=== PATIENT | male | born 1985 | race Caucasian/White ===

== ENCOUNTER 2017-11-07 06:27 | Emergency (ER) | payer OTHER ==
[2017-11-07 07:08] LABS: Basophils # (Auto) 0.1 K/mm3 (0.0-0.1); Basophils % (Auto) 0.4 % (0.0-1.8); Eosinophils # (Auto) 0.2 K/mm3 (0.0-0.4); Eosinophils % (Auto) 1.6 % (0.0-4.3); Hematocrit 45.2 % (35.5-45.6); Hemoglobin 15.3 gm/dl (11.8-15.2); Lymphocytes % (Auto) 6.8 % (13.4-35.0); Mean Corpuscular HGB Conc 34 % (32-34); Mean Corpuscular Hemoglobin 28 pg (28-32); Mean Corpuscular Volume 83 fl (84-94); Monocytes # (Auto) 1.2 K/mm3 (0.0-0.8); Monocytes % (Auto) 7.8 % (0.0-7.3); Platelet Count 236 K/mm3 (140-440); Red Blood Count 5.45 M/mm3 (3.65-5.03); Red Cell Distribution Width 15.5 % (13.2-15.2)
[2017-11-07 07:29] LABS: Albumin 4.1 g/dL (3.9-5); Calcium 9.5 mg/dL (8.4-10.2)
[2017-11-07] MEDS ORDERED: APRESOLINE IV ONE (08:06)
[2017-11-07] MEDS ORDERED: NACL 0.9% 1000 ML 1,000 ML IV ONE (08:06)
[2017-11-07] MEDS ORDERED: SUBLIMAZE IV ONE (08:06)
[2017-11-07] MEDS ORDERED: ZOFRAN IV ONE (08:08)
[2017-11-07 08:39] LABS: Bilirubin,Urine NEG (Negative); Blood,Urine LG (Negative); Color,Urine Yellow (Yellow); Mucus,Urine FEW /HPF; Protein,Urine <15 mg/dL mg/dL (Negative); Urobilinogen,Urine < 2.0 mg/dL (<2.0)
[2017-11-07 08:41] LABS: RBC,Urine > 182.0 /HPF (0.0-6.0)
--- NOTE | 2017-11-07 08:48 | Cat Scan Report ---
FINAL REPORT EXAM: CT ABDOMEN PELVIS WO CON HISTORY: right flank pain hx kidney stones TECHNIQUE: CT images obtained through the Abdomen and Pelvis without contrast. Transaxial,coronal and sagittal reformats are provided. PRIORS: 03/22/2016 FINDINGS: Imaged intrathoracic contents are unremarkable. The kidneys are markedly enlarged and contain numerous cysts, similar to 2016 examination. [id number] right-sided hydroureteronephrosis is due to a 4 millimeter obstructing stone in the right ureterovesical junction on axial series 2, image 178. Additional nonobstructive 1-2 millimeter stones may be present in both collecting systems. Multiple renal cortical calcifications are present. Numerous hepatic cysts are not significantly changed from prior. The gallbladder, pancreas, spleen and adrenal glands are unremarkable. Hollow enteric organs are normal in course and caliber. No findings of acute appendicitis. No intra-abdominal free air/fluid or lymphadenopathy. Aorta is normal in course and caliber. Superficial soft tissues are unremarkable. No acute or aggressive appearing skeletal findings. IMPRESSION: The the [id number] right-sided hydroureteronephrosis due to a 4 millimeter obstructing stone at the ureterovesical junction. Multicystic kidney disease affecting the liver appears slightly more extensive compared to 03/22/2016.
--- NOTE | 2017-11-07 09:19 | Emergency Department Report ---
HPI - General Chief Complaint: Back Pain/Injury Time Seen by Provider: 11/07/17 08:04 - HPI HPI: The patient is a 31-year-old male who presents for evaluation of right flank pain. The patient has a history of kidney stones. The patient reports right flank pain for the past one day, sharp in quality, moderate in severity, radiating to the right lower abdomen, exacerbated with movement. The patient denies fever, chills, night sweats, chest pain, dyspnea, nausea, vomiting, diarrhea, blood in the stool, dark tarry stool, dysuria, hematuria, genital discharge, inability to pass flatus. ED Past Medical Hx - Past Medical History Previous Medical History?: Yes Hx Kidney Stones: Yes - Surgical History Past Surgical History?: Yes Additional Surgical History: HERNIA REPAIR - Social History Smoking Status: Never Smoker Substance Use Type: None - Medications Home Medications: Home Medications Medication Instructions Recorded Confirmed Last Taken Type Ciprofloxacin HCl [Ciprofloxacin 500 mg PO Q12HR #14 tab 03/22/16 Unknown Rx TAB] HYDROcodone/APAP 5-325 [[place] 1 each PO Q6HR PRN #16 tablet 03/22/16 Unknown Rx 5/325] Tamsulosin [Flomax] 0.4 mg PO QDAY #5 cap 03/22/16 Unknown Rx HYDROcodone/APAP 7.5-325 [[place] 1 each PO Q8HR PRN #20 tablet 11/07/17 Unknown Rx 7.5-325 mg TAB] Ondansetron [Zofran TAB] 4 mg PO Q8HR PRN #20 tablet 11/07/17 Unknown Rx Tamsulosin [Flomax] 0.4 mg PO QDAY #10 cap 11/07/17 Unknown Rx amLODIPine [Norvasc] 5 mg PO DAILY #31 tab 11/07/17 Unknown Rx ED Review of Systems ROS: Stated complaint: KIDNEY PAIN Other details as noted in HPI Constitutional: denies: fever ENT: denies: throat or neck pain Respiratory: denies: cough, shortness of breath Cardiovascular: denies: chest pain Endocrine: denies unexplained weight loss or gain Gastrointestinal: Reports flank and abdominal pain, nausea Genitourinary: denies: dysuria Musculoskeletal: denies: leg swelling Skin: denies: rash Neurological: denies: headache Hematological/Lymphatic: denies: easy bleeding or easy bruising Psych: denies sadness or hopelessness Physical Exam - Physical Exam Vital Signs: Vital Signs 11/07/17 11/07/17 06:45 08:01 Temperature 99.2 F Pulse Rate 109 H Respiratory 20 18 Rate Blood Pressure 163/111 O2 Sat by Pulse 100 Oximetry Physical Exam: General: well-nourished, well-developed, no acute distress Head: Normocephalic, atraumatic Eyes: normal sclera ENT: Mucous membranes are pale and dry Neck: trachea midline, neck supple, No neck stiffness, no cervical adenopathy Respiratory: Breath sounds equal bilaterally, no wheezing, rales, or rhonchi Cardio: S1 and S2 present, no murmurs, rubs, gallops, capillary refill is delayed Abdomen: Normoactive bowel sounds, soft abdomen, right upper quadrant tenderness to palpation present, no rigidity, no guarding or rebound tenderness Chest WALL/Back: No tenderness to palpation of the chest wall, right CVA tenderness with percussion is present, no tenderness with palpation of the flank Musc: No pitting edema Skin: No rash Neuro: no facial drooping, normal speech Psych: Normal affect ED Course Vital Signs 11/07/17 11/07/17 06:45 08:01 Temperature 99.2 F Pulse Rate 109 H Respiratory 20 18 Rate Blood Pressure 163/111 O2 Sat by Pulse 100 Oximetry ED Medical Decision Making - Lab Data Result diagrams: 11/07/17 06:54 11/07/17 06:54 - Medical Decision Making The patient was seen and examined by myself. The patient is placed on a campus monitor and continuous pulse ox. On initial evaluation, the patient was found to be in no distress. Evaluation orders are placed. IV access is established and the patient is given 1 L normal saline fluid bolus and Zofran for nausea, and IV analgesic for pain Lab results exhibited mildly elevated WBC 14 and mildly elevated creatinine of 1.7, likely a patient baseline as the patient's found to have creatinine of 1.5 during ED visit here 2 years ago. Otherwise labs were unremarkable including renal function, LFTs, lipase, and urinalysis. CT scan abdomen and pelvis reveals a 4mm right ureter stone at the UVJ, without severe hydronephrosis. The patient was reevaluated and reported that their symptoms were markedly improved. The patient is stable for discharge with outpatient follow-up. The patient is given follow-up and return instructions. The patient expressed understanding and agreed with the plan. The patient is discharged in stable condition. Critical care attestation.: If time is entered above; I have spent that time in minutes in the direct care of this critically ill patient, excluding procedure time. ED Disposition Clinical Impression: Ureterolithiasis, Acute right flank pain, Acute abdominal pain in right upper quadrant, Dehydration, mild, Hypertensive urgency Disposition: TO HOME OR SELFCARE Is pt being admited?: No Does the pt Need Aspirin: No Condition: Stable Instructions: Kidney Stones (ED), Chronic Kidney Disease (ED), Autosomal Dominant Polycystic Kidney Disease (ED), How to Strain Your Urine (ED), DASH Eating Plan (ED) Additional Instructions: Make sure to follow-up with one of the referred neurologist or urologist of your choice within the next week. Should your symptoms continue past the next week or worsen, or should you develop fever, chills, night sweats, severe worsening pain, bloody urine, or the inability to urinate, return to an emergency department immediately. Prescriptions: HYDROcodone/APAP 7.5-325 [[place] 7.5-325 mg TAB] 1 each PO Q8HR PRN #20 tablet PRN Reason: Pain Ondansetron [Zofran TAB] 4 mg PO Q8HR PRN #20 tablet PRN Reason: Nausea Tamsulosin [Flomax] 0.4 mg PO QDAY #10 cap Referrals: VERN ALARCON MD [Staff Physician] - 3-5 Days YSED YOUNG MD [Referring] - 3-5 Days Time of Disposition: 09:25 Print Language: [place]
[2017-11-07 10:16] VITALS: BP 150/96
== END 2017-11-07 10:31 | disposition home or self-care (01) ==
LOC: ED 06:27
DX: N20.1 Calculus of ureter (principal); R10.30 Lower abdominal pain, unspecified; R10.11 Right upper quadrant pain; E86.0 Dehydration; I10 Essential (primary) hypertension
CPT/HCPCS: 36415; 74176; 80053; 81001; 85025; 96361; 96374; 96375; 99284; J0360; J2405; J3010; J7030